=== PATIENT | female | born 1960 | race Caucasian/White ===

== ENCOUNTER 2020-07-21 11:49 | Inpatient (IN) | payer BC ==
[2020-07-16 15:34] LABS: BASOPHILS # (AUTO) 0.1 X10'3 (0-0.2); EOSINOPHILS # (AUTO) 0.2 X10'3 (0-0.9); EOSINOPHILS % (AUTO) 2.2 % (0-6); LYMPHOCYTES # (AUTO) 2.2 X10'3 (1.1-4.8); LYMPHOCYTES % (AUTO) 30.3 % (21-51); MEAN CORPUSCULAR HEMOGLOBIN 28.1 PG (27.0-31.0); MEAN CORPUSCULAR HGB CONC 33.1 g/dL (33.0-36.5); MEAN CORPUSCULAR VOLUME 84.9 FL (78-98); MEAN PLATELET VOLUME 9.2 FL (7.4-10.4); MONOCYTES # (AUTO) 0.5 X10'3 (0-0.9); MONOCYTES % (AUTO) 7.4 % (2-12); NEUTROPHILS # (AUTO) 4.4 X10'3 (1.8-7.7); NEUTROPHILS % (AUTO) 59.1 % (42-75); PRE OP HEMATOCRIT 40.4 % (35.0-45.0); PRE OP HEMOGLOBIN 13.4 g/dL (12.0-16.0); PRE OP PLATELET COUNT 267 X10'3 (140-440); RED BLOOD COUNT 4.76 X10'6 (4.20-5.60); RED CELL DISTRIBUTION WIDTH 13.9 % (11.5-14.5)
[2020-07-16 15:50] LABS: ALBUMIN 3.6 G/DL (3.4-5.0); ALKALINE PHOSPHATASE 78 IU/L (46-116); BLOOD UREA NITROGEN 24 MG/DL (7-18); CALCIUM 8.8 MG/DL (8.5-10.1); CHLORIDE 105 MMOL/L (99-107); CREATININE 0.96 MG/DL (0.40-0.90); PRE OP ALT 27 U/L (30-65); PRE OP ANION GAP 10 (8-16); PRE OP AST 15 U/L (10-37); PRE OP BILIRUB, TOTAL 0.4 MG/DL (0.0-1.0); PRE OP GLUCOSE 94 MG/DL (70-104); PRE OP POTASSIUM 3.7 MMOL/L (3.4-5.1); PRE OP SODIUM 142 MMOL/L (135-145); TOTAL CARBON DIOXIDE 26.9 MMOL/L (24-32); TOTAL PROTEIN 7.1 G/DL (6.4-8.2); eGFR 59 ML/MIN
[~2020-07-21] VITALS: Ht 172.7 cm; Wt 93.5 kg
[2020-07-21] VITALS (18 sets, daily range): BP systolic 142–165; BP diastolic 73–92
[~2020-07-21 11:49] MED LIST: ASPI81TA52 PO; BIOT5000 PO; MAGN400T39 PO; OMEP40CA13 PO; VITAMIN D3 PO; ceFAZolin 2gm in dextrose, iso 50 ML IV ONE; famotidine 20mg tablet PO ONE; ringers solution, lacted 1,000 ML IV SCH
[2020-07-21] MEDS ORDERED: morphine 4 MG/ML inj SYRINge IV PRN (13:05)
[2020-07-21] MEDS ORDERED: proCHLORperazine 10 MG/2 ml inj IV PRN (13:05)
[2020-07-21] MEDS ORDERED: morphine 2 MG/ML inj. syringe IV PRN (13:05)
[2020-07-21] MEDS ORDERED: ringers solution, lacted 1,000 ML IV SCH (13:05)
[2020-07-21] MEDS ORDERED: meperidine/PF 25mg/ml syringe IV PRN ×3 (13:05)
[2020-07-21] MEDS ORDERED: ondansetron/PF 4mg/2ml inj IV PRN ×2 (13:05→17:00)
[2020-07-21] MEDS ORDERED: LIDOcaine 1% 30ml preserv. free vial ONE (14:09)
[2020-07-21] MEDS ORDERED: BUPIVAcaine/PF 2.5 mg/ml (0.25%) 30ml vial ONE (14:09)
[2020-07-21] MEDS ORDERED: midazolam 2 mg/2 ml injection ONE (14:29)
[2020-07-21] MEDS ORDERED: fentaNYL /PF 50mcg/ml 5ml ampule ONE (14:29)
[2020-07-21] MEDS ORDERED: propofol inj 20 ML IV ONE (14:40)
[2020-07-21] MEDS ORDERED: rocuronium 10mg/ml inj IV ONE (14:40)
[2020-07-21] MEDS ORDERED: LIDOcaine 1%/PF 5ML 10 MG/ML VIAL ONE (14:40)
[2020-07-21] MEDS ORDERED: dexamethasone sod phosphate 4mg/ml inj. ONE (14:41)
[2020-07-21] MEDS ORDERED: ondansetron/PF 4mg/2ml inj ONE (14:41)
[2020-07-21] MEDS ORDERED: acetaminophen 1,000mg/100ml IV 100 ML IV ONE (15:14)
[2020-07-21] MEDS ORDERED: HYDROmorphone 1 mg/ml syringe IV PRN (17:00)
--- NOTE | 2020-07-21 17:02 | NUR ---
Received from OR via BED, accompanied by Anesthesiologist DR LOVE and report given by Anesthesiologist. PT DROWSY, DENIES PAIN, ABDOMEN W 5/LAP SITES W/DERMABOND CDI, CASTILLO CATHETER TO GRAVITY DRAINAGE W/YELLOW URINE IN DRAINAGE BAG. Addendum: 07/21/20 at 1751 by Makenna Guajardo RN Amended: Links added.
[2020-07-21] MEDS ORDERED: triamcinolone acetonide 40mg/ml inj ONE (17:13)
--- NOTE | 2020-07-21 18:42 | NUR ---
NAUSEA SUBSIDED, PT STATES PAIN IN TOLERABLE. Report called to receiving nurse. Transferred via BED, 2 BAGS OF Belongings, GLASSES SENT W/PT TO ROOM 350A. RECEIVING RN AT BEDSIDE TO RECEIVE PT. Special Issues communicated to receiving nurse. Addendum: 07/21/20 at 1848 by Makenna Guajardo RN Amended: Links added.
--- NOTE | 2020-07-21 18:43 | NUR ---
I have received report from Kal HIGUERA and had the opportunity to ask questions and assume patient care. pt form OR no signs of distress Addendum: 07/21/20 at 1859 by Lindsay Gomez RN I have received report from Makenna HIGUERA and had the opportunity to ask questions and assume patient care.
[2020-07-21] MEDS: acetaminophen 325mg/10.15ml oral unit dose solution PO SCH (20:17)
[2020-07-21] MEDS: potassium CL 20mEq in D5-1/2NS 1,000 ML IV SCH (20:17)
[2020-07-21] MEDS: heparin, porcine 5000 units/ml vial SQ SCH (20:19)
[2020-07-21] MEDS: HYDROmorphone inj. 0.5 MG/0.5 ML DISP.SYRIN IV PRN (22:47)
[2020-07-22] VITALS: BP 146/80
[2020-07-22] MEDS: acetaminophen 325mg/10.15ml oral unit dose solution PO SCH ×4 (00:32→15:06)
[2020-07-22] MEDS: potassium CL 20mEq in D5-1/2NS 1,000 ML IV SCH ×2 (01:00→03:33)
[2020-07-22 04:00] VITALS: BP 136/76
[2020-07-22] MEDS: HYDROmorphone inj. 0.5 MG/0.5 ML DISP.SYRIN IV PRN (05:32)
[2020-07-22 05:57] LABS: ALBUMIN 3.1 G/DL (3.4-5.0); ANION GAP 7 (8-16); BLOOD UREA NITROGEN 14 MG/DL (7-18); BUN/CREATININE RATIO 15.4 (6.6-38.0); CALCIUM 8.6 MG/DL (8.5-10.1); CHLORIDE 105 MMOL/L (99-107); CREATININE 0.91 MG/DL (0.40-0.90); GLUCOSE 128 MG/DL (70-104); POTASSIUM 4.5 MMOL/L (3.5-5.1); SODIUM 138 MMOL/L (135-145); TOTAL CARBON DIOXIDE 26.2 MMOL/L (24-32); eGFR 63 ML/MIN
[2020-07-22 06:01] LABS: BASOPHILS % (AUTO) 0.3 % (0-1); EOSINOPHILS % (AUTO) 0 % (0-6); HEMOGLOBIN 13.5 g/dl (12.0-16.0); MEAN CORPUSCULAR HEMOGLOBIN 27.8 PG (27.0-31.0); MEAN CORPUSCULAR HGB CONC 32.9 g/dL (33.0-36.5); MEAN CORPUSCULAR VOLUME 84.7 FL (78-98); MEAN PLATELET VOLUME 9.2 FL (7.4-10.4); MONOCYTES # (AUTO) 0.5 X10'3 (0-0.9); MONOCYTES % (AUTO) 5.7 % (2-12); NEUTROPHILS # (AUTO) 7.6 X10'3 (1.8-7.7); PLATELET COUNT 255 X10'3 (140-440); RED BLOOD COUNT 4.84 X10'6 (4.20-5.60); RED CELL DISTRIBUTION WIDTH 14.2 % (11.5-14.5); WHITE BLOOD COUNT 9.1 X10'3 (4.5-11.0)
--- NOTE | 2020-07-22 06:40 | NUR ---
Problems reprioritized. Patient report given, questions answered & plan of care reviewed with Chen HIGUERA.
--- NOTE | 2020-07-22 06:47 | NUR ---
Patient in room [facility]. I have received report from babatunde HIGUERA and had the opportunity to ask questions and assume patient care.
[2020-07-22 07:00] VITALS: BP 137/70
[2020-07-22] MEDS: heparin, porcine 5000 units/ml vial SQ SCH (08:00)
[2020-07-22] MEDS ORDERED: aspirin 81mg tablet.DR PO SCH (08:00)
[2020-07-22] MEDS: albuterol 2.5 MG/3 ML nebule NEB SCH ×2 (08:37→12:46)
[2020-07-22 11:00] VITALS: BP 137/70
--- NOTE | 2020-07-22 11:42 | NUR ---
patient tolerated clear liquid diet. order put in by Dr ely for full lqd, fluids DC. patient went for oesophagram 0900hrs, medicated for pain following this, with good effect.
[2020-07-22] MEDS ORDERED: acetaminophen 325mg tablet PO PRN (13:50)
[2020-07-22] MEDS ORDERED: ACET-1008 PO (13:52)
--- NOTE | 2020-07-22 14:19 | NUR ---
Nutrition consult: Pt s/p Jennie fundoplication seen at bedside for written and verbal education which includes full liquid diet nutrition therapy education, s/p Jennie fundoplication nutrition therapy education, a list of fiber content in foods, and ONS coupons. Pt able to teach back education provided. All of patient's questions were answered at this time. RD contact information provided. Will remain available. Addendum: 07/22/20 at [address] Amended: Links added.
--- NOTE | 2020-07-22 16:14 | NUR ---
patient seen by Dr Lainez diet advanced to full lqd. patient tolerated this. order placed for discharge. All Dc instructions given to patient . patient DC home via private car in stable condition.
== END 2020-07-22 15:50 | disposition home or self-care (01) | DRG 328 ==
LOC: PAS 11:49 → SUR 3N 17:00 → UNDOADMIN 18:44
PROVIDERS: ADMIT Surgery; ATTEND Surgery
PROC: 0DV44ZZ Restriction of Esophagogastric Junction, Percutaneous Endoscopic Approach (ICD-10-PCS; 2020-07-21)
PROC: 8E0W4CZ Robotic Assisted Procedure of Trunk Region, Percutaneous Endoscopic Approach (ICD-10-PCS; 2020-07-21)
PROC: 0BQT4ZZ Repair Diaphragm, Percutaneous Endoscopic Approach (ICD-10-PCS; principal; 2020-07-21 14:25)
PROC: BD11YZZ Fluoroscopy of Esophagus using Other Contrast (ICD-10-PCS; 2020-07-22)
DX: K44.9 Diaphragmatic hernia without obstruction or gangrene (principal); Z79.899 Other long term (current) drug therapy; Z79.82 Long term (current) use of aspirin
CPT/HCPCS: Z7506; Z7508; 36415; 71045; 74220; 80048; 80053; 82948; 85025; 87635; 93005; 94640; 94760; A4215; A4618; C1758; G0378; J0131; J0780; J1100; J1170; J1644; J2001; J2175; J2250; J2405; J2704; J3010; J3301; J3480; J3490; J7120